=== PATIENT | female | born 1975 | race Caucasian/White ===

== ENCOUNTER 2022-03-30 00:38 | Emergency (ER) | payer OTHER, SELFPAY ==
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
[2022-03-30 07:41] VITALS: BP 146/97; TEMP 98.3; O2SAT 97
== END 2022-03-30 06:05 | disposition home or self-care (01) ==
LOC: ER 00:38
DX: T76.21XA Adult sexual abuse, suspected, initial encounter (principal)
CPT/HCPCS: 99283